=== PATIENT | female | born 1935 | race Caucasian/White ===

== ENCOUNTER → 2017-07-21 | Outpatient (CLI) | payer OTHER ==
[2017-07-21 13:40] LABS: ALBUMIN 3.4 gm/dl (3.4-5.0); ALT/SGPT 25 U/L (12-78); BLOOD UREA NITROGEN 15 mg/dl (7-18); CALCIUM 8.9 mg/dl (8.5-10.1); CARBON DIOXIDE 28 mmol/L (21-32); CHOLESTEROL 195 mg/dl (0-200); CREATININE 1.13 mg/dl (0.60-1.20); GLUCOSE 83 mg/dl (70-99); POTASSIUM 4.5 mmol/L (3.5-5.1); SODIUM 138 mmol/L (136-145)
[2017-07-21 13:51] LABS: ALKALINE PHOSPHATASE 63 U/L (45-117); AST/SGOT 21 U/L (15-37); LDL CHOLESTEROL CALCULATED 111 mg/dl; TOTAL PROTEIN 7.4 gm/dl (6.4-8.2)
== END | disposition home or self-care (01) ==
LOC: C.LABBFT 09:53
PROVIDERS: ATTEND Internal Medicine
DX: Z00.00 Encounter for general adult medical examination without abnormal findings (principal); E78.5 Hyperlipidemia, unspecified; E03.9 Hypothyroidism, unspecified; I10 Essential (primary) hypertension

== ENCOUNTER → 2017-11-22 | Outpatient (CLI) | payer OTHER ==
--- NOTE | 2017-12-08 13:53 | MAMMOGRAPHY REPORT ---
THIS REPORT HAS BEEN AMENDED. BILATERAL DIGITAL SCREENING MAMMOGRAM TOMOSYNTHESIS WITH CAD: 11/22/2017 CLINICAL HISTORY: Routine screening. Patient has no complaints. TECHNIQUE: The study was acquired using full field digital technology and interpreted from soft copy. Breast tomosynthesis in addition to standard 2D mammography was performed. Current study was also ev aluated with a Computer Aided Detection (CAD) system. COMPARISON: No prior exams were available for comparison. BREAST COMPOSITION: There are scattered areas of fibroglandular density in both breasts. FINDINGS: There is a 10 mm nodular asymmetry in the lateral, posterior left breast on the 2D CC view that partially effaces on the corresponding tomosynthesis images. A 5 mm nodular asymmetry is seen i n the anterior right breast along the posterior nipple line on CC tomosynthesis slice 16, for which c omparison to prior outside mammograms would be useful to assess stability. If the outside exams are not obtained in a timely manner, additional spot compression tomosynthesis views and possible ultraso und are recommended. There are moderate vascular calcifications in the breasts. A metallic biopsy marker clip is seen in the right upper outer quadrant. No other suspicious mass, architectural distortion or cluster of micr ocalcifications is seen. IMPRESSION: ACR BI-RADS CATEGORY 0: INCOMPLETE EVALUATION: NEED ADDITIONAL IMAGING EVALUATION The 10 mm nodular asymmetry in the lateral left breast and 5 mm nodular asymmetry in the anterior rig ht breast need comparison to prior outside mammograms to assess stability. If the outside exams are not obtained in a timely manner, additional imaging evaluation is needed. The patient will be called to schedule an appointment. Some breast cancers are not detected with mammography. A negative mammographic report should not jerry y biopsy if a clinically suggestive mass is present. Jackelyn Stewart M.D. ay/:12/07/2017 16:02:07 Dehydrator: Cristy Fontaine, [facility] letter sent: Need Priors 0 BI-RADS Code: ACR BI-RADS Category 0: Incomplete Evaluation: Need Additional Imaging Evaluation AMENDMENT: 12/14/2017 Jackelyn Stewart M.D. Prior outside mammograms from [facility] dated 11/09/2013, 11/13/2014, 11/15/2015, 11/17/19 17 became available for review. The 10 mm nodular asymmetry in the lateral, posterior left breast on the CC view is stable comparing to the 2015 and 2014 mammograms, suggesting benign overlapping gland ular tissue. However, the 5 mm nodular asymmetry in the anterior right breast on the CC view was not definitely identified on prior mammograms and is therefore indeterminate. Additional spot compressi on tomosynthesis views and possible ultrasound are recommended in the right breast. Amended BI-RADS: ACR BI-RADS Category 0: Incomplete Evaluation: Need Additional Imaging Evaluation letter sent: Addl Imaging 0
== END | disposition home or self-care (01) ==
LOC: C.MAMM 11:04
PROVIDERS: ATTEND Internal Medicine
DX: N64.89 Other specified disorders of breast (principal)